=== PATIENT | female | born 1960 | race Caucasian/White ===

== ENCOUNTER 2020-01-29 20:39 | Emergency (ER) | payer SELFPAY ==
[~2020-01-29] VITALS: Ht 162.6 cm; Wt 68.0 kg
[2020-01-29] MEDS ORDERED: KETOROLAC 30MG/ML VIAL IM ONE (21:00)
[2020-01-29] MEDS ORDERED: IBUPROFEN 600MG TABLET PO ONE (21:30)
[2020-01-30 05:30] VITALS: BP 137/76
== END 2020-01-30 08:31 | disposition home or self-care (01) ==
LOC: ER 20:39
DX: S79.811A Other specified injuries of right hip, initial encounter (principal); V49.49XA Driver injured in collision with other motor vehicles in traffic accident, initial encounter; M25.551 Pain in right hip; Y93.89 Activity, other specified; Y92.89 Other specified places as the place of occurrence of the external cause; Y99.8 Other external cause status; E11.9 Type 2 diabetes mellitus without complications; E78.00 Pure hypercholesterolemia, unspecified; I10 Essential (primary) hypertension
CPT/HCPCS: 72192; 73521; 73552; 99284; J1885

== ENCOUNTER 2023-01-01 16:04 | Emergency (ER) | payer MEDICAID ==
[~2023-01-01] VITALS: Ht 165.1 cm; Wt 82.0 kg
[~2023-01-01 16:04] MED LIST: ACET-2708 MT; ACET-2708 PO; NAPR500T7 MT; PHEN100C4 PO
[2023-01-01 16:08] VITALS: TEMP 98.6; O2SAT 100
[2023-01-01 20:12] VITALS: BP 154/94; PULSE 94; RESP 18
[2023-01-01] MEDS ORDERED: IBUPROFEN 600MG TABLET PO STA (20:12)
[2023-01-01] MEDS ORDERED: IBUP-2029 MT (21:09)
== END 2023-01-01 21:20 | disposition home or self-care (01) ==
LOC: ER 16:04
DX: S09.90XA Unspecified injury of head, initial encounter (principal); I10 Essential (primary) hypertension; Z86.59 Personal history of other mental and behavioral disorders; V89.2XXA Person injured in unspecified motor-vehicle accident, traffic, initial encounter; Y93.89 Activity, other specified; Y92.89 Other specified places as the place of occurrence of the external cause; Y99.8 Other external cause status
CPT/HCPCS: 99283

== ENCOUNTER 2023-01-01 21:40 | Emergency (ER) | payer MEDICAID ==
[~2023-01-01 21:40] MED LIST changes: +IBUP-2029 MT
[2023-01-01 21:44] VITALS: PULSE 94
[2023-01-01] MEDS ORDERED: ACETAMINOPHEN 325MG TABLET PO ONE (22:45)
== END 2023-01-02 00:52 | disposition home or self-care (01) ==
LOC: ER 21:40
DX: R10.9 Unspecified abdominal pain (principal)
CPT/HCPCS: 99281

== ENCOUNTER 2023-01-02 01:29 | Emergency (ER) | payer MEDICAID ==
[2023-01-02 01:31] VITALS: PULSE 70
[2023-01-02] MEDS ORDERED: ACETAMINOPHEN 325MG TABLET PO ONE (01:45)
== END 2023-01-02 04:00 | disposition home or self-care (01) ==
LOC: ER 01:29
DX: M79.603 Pain in arm, unspecified (principal)
CPT/HCPCS: 99281